=== PATIENT | female | born 1965 | race Hispanic/Latino ===

== ENCOUNTER 2020-07-05 15:59 | Inpatient (IN) | payer BC ==
[2020-07-05] MEDS ORDERED: ACETAMINOPHEN 500 MG TAB ONE (17:15)
[2020-07-05 17:26] LABS: Absolute Lymphocytes (CBC) 1.1 K/uL (0.7-4.9); Basophils % 0.3 % (0-1.3); Hematocrit 38.4 % (36.0-45.0); Lymphocytes % 6.2 % (15.3-44.8); MPV 8.4 fL (7.6-11.3); RBC Red Blood Cell Count 4.42 M/uL (3.86-4.86)
[2020-07-05 17:30] LABS: Protime INR 1.17
[2020-07-05] MEDS ORDERED: NA CHLORIDE 0.9% 3,000 ML ONE (17:38)
[2020-07-05] MEDS ORDERED: IPRATROPIUM BROM 0.5MG/2.5ML ONE (17:39)
[2020-07-05] MEDS ORDERED: ALBUTEROL 2.5 MG/3 ML NEB SOL ONE (17:39)
[2020-07-05 17:47] LABS: ALT/SGPT 58 U/L (12-78); AST/SGOT 22 U/L (15-37); Albumin 3.5 g/dL (3.4-5.0); Alkaline Phosphatase 71 U/L (45-117); Amylase 31 U/L (25-115); BUN Blood Urea Nitrogen 20 mg/dL (7-18); Bicarbonate 27 mmol/L (21-32); Bilirubin Direct 0.3 mg/dL (0-0.2); Bilirubin Total 1.3 mg/dL (0.2-1.0); CKMB Creatine Kinase MB 1.2 ng/mL (0.3-3.6); Creatine Phosphokinase 183 U/L (26-192); Glucose Level 109 mg/dL (74-106); Lipase 45 U/L (73-393); Potassium 3.8 mmol/L (3.5-5.1); Protein, Total 7.6 g/dL (6.4-8.2); Sodium Level 137 mmol/L (136-145); Troponin (Emerg Dept Use Only) < 0.02 ng/mL (0.0-0.045)
[2020-07-05 18:03] LABS: Blood Morphology Comment NOT SEEN (NOT SEEN); Platelet Estimate ADEQ; White Blood Cell Scan OK (OK)
--- NOTE | 2020-07-05 18:04 | RAD REPORT ---
EXAM DESCRIPTION: Madie Single View07/05/2020 5:36 pm CLINICAL HISTORY: Cough COMPARISON: none FINDINGS: The lungs appear clear of acute infiltrate. The heart is normal size IMPRESSION: No acute abnormalities displayed
[2020-07-05 19:00] LABS: Urine Blood TRACE (NEG); Urine Glucose NEGATIVE (NEG); Urine Protein TRACE (NEG); Urine Specific Gravity 1.025 (1.005-1.030)
[2020-07-05 19:09] LABS: Urine Bacteria >50 /HPF (<20); Urine RBC <5 /HPF (NONE SEEN)
--- NOTE | 2020-07-05 19:12 | EDPHYS ---
Physician Documentation [facility] Name: Shaye Del Valle Age: 55 yrs Sex: Female : 1965 Arrival Date: 07/05/2020 Time: 16:16 Bed 18 Private MD: ED Physician Richard Pettit HPI: 07/05 18:02 This 55 yrs old Female presents to ER via Ambulatory with complaints of Cough, kdr Back Pain, Fatigue. 18:02 The patient or guardian reports cough, that is intermittent, described as mild, with no kdr sputum. Onset: The symptoms/episode began/occurred gradually, 1 week(s) ago. Severity of symptoms: At their worst the symptoms were mild, moderate, just prior to arrival, in the emergency department the symptoms are unchanged. Modifying factors: The symptoms are alleviated by nothing. Associated signs and symptoms: Pertinent positives: chest pain, fever, nausea, this patient has no pertinent positive symptoms. The patient has experienced similar episodes in the past, a few times. The patient has been recently seen by a physician:. The patient was diagnosed with COVID on 06/16 and this last week has had increasing coughing and associated back pain with coughing. She denies objective fever but has occasionally had chills. Historical: - Allergies: 16:21 No Known Allergies; sv - PMHx: 16:21 Hypertension; OA; sv - PSHx: 16:21 ; Hernia repair; right shoulder; sv - Immunization history:: Adult Immunizations up to date. - Social history:: Smoking status: Patient/guardian denies using tobacco, Stopped _ months ago 2. ROS: 18:02 Eyes: Negative for injury, pain, redness, and discharge, ENT: Negative for injury, kdr pain, and discharge, Neck: Negative for injury, pain, and swelling, Cardiovascular: Negative for chest pain, palpitations, and edema, Abdomen/GI: Negative for abdominal pain, nausea, vomiting, diarrhea, and constipation, : Negative for injury, bleeding, discharge, and swelling, MS/Extremity: Negative for injury and deformity, Skin: Negative for injury, rash, and discoloration, Neuro: Negative for headache, weakness, numbness, tingling, and seizure activity. Psych: Negative for depression, anxiety, suicide ideation, homicidal ideation, and hallucinations, Allergy/Immunology: Negative for hives, rash, and allergies, Endocrine: Negative for neck swelling, polydipsia, polyuria, polyphagia, and marked weight changes, Hematologic/Lymphatic: Negative for swollen nodes, abnormal bleeding, and unusual bruising. 18:02 Respiratory: Positive for cough, with no reported sputum, shortness of breath, Negative for dyspnea on exertion, hemoptysis, orthopnea, pleurisy, sputum production, wheezing. 18:02 Back: Positive for pain with movement, Negative for decreased range of motion, pain at rest, radiated pain. Exam: 17:46 ECG was reviewed by the Attending Physician. kdr 18:02 Constitutional: This is a well developed, well nourished patient who is awake, alert, kdr and in no acute distress. Head/Face: Normocephalic, atraumatic. Eyes: Pupils equal round and reactive to light, extra-ocular motions intact. Lids and lashes normal. Conjunctiva and sclera are non-icteric and not injected. Cornea within normal limits. Periorbital areas with no swelling, redness, or edema. Neck: Trachea midline, no thyromegaly or masses palpated, and no cervical lymphadenopathy. Supple, full range of motion without nuchal rigidity, or vertebral point tenderness. No Meningismus. Chest/axilla: Normal chest wall appearance and motion. Nontender with no deformity. No lesions are appreciated. Cardiovascular: Regular rate and rhythm with a normal S1 and S2. No gallops, murmurs, or rubs. Normal PMI, no JVD. No pulse deficits. Respiratory: Lungs have equal breath sounds bilaterally, clear to auscultation and percussion. No rales, rhonchi or wheezes noted. No increased work of breathing, no retractions or nasal flaring. Abdomen/GI: Soft, non-tender, with normal bowel sounds. No distension or tympany. No guarding or rebound. No evidence of tenderness throughout. Back: No spinal tenderness. No costovertebral tenderness. Full range of motion. Skin: Warm, dry with normal turgor. Normal color with no rashes, no lesions, and no evidence of cellulitis. MS/ Extremity: Pulses equal, no cyanosis. Neurovascular intact. Full, normal range of motion. Neuro: Awake and alert, GCS 15, oriented to person, place, time, and situation. Cranial nerves II-XII grossly intact. Motor strength 5/5 in all extremities. Sensory grossly intact. Cerebellar exam normal. Normal gait. Psych: Awake, alert, with orientation to person, place and time. Behavior, mood, and affect are within normal limits. Vital Signs: 16:21 BP 114 / 67; Pulse 110; Resp 22; Temp 99.5(TE); Pulse Ox 99% on R/A; Weight 102.51 kg; sv Height 5 ft. 4 in. (162.56 cm); Pain 5/10; 16:57 Temp 102.7; zb 17:52 BP 108 / 56; Pulse 96; Resp 18; Temp 99.4(O); Pulse Ox 100% on R/A; mh5 18:57 BP 96 / 50; Pulse 100; Resp 18; Temp 99.3(O); Pulse Ox 95% on 2 lpm NC; mh5 20:00 BP 96 / 50; Pulse 96; Resp 20; Pulse Ox 97% on R/A; zb 21:25 BP 107 / 50; Pulse 92; Resp 19; Pulse Ox 100% on R/A; zb 16:21 Body Mass Index 38.79 (102.51 kg, 162.56 cm) sv MDM: 18:02 Data reviewed: vital signs, nurses notes, lab test result(s), radiologic studies. kdr Counseling: I had a detailed discussion with the patient and/or guardian regarding: the historical points, exam findings, and any diagnostic results supporting the discharge/admit diagnosis, lab results, radiology results, the need for outpatient follow up. 19:03 Patient medically screened. ma2 07/05 16:28 Order name: Basic Metabolic Panel kdr 07/05 16:28 Order name: Blood Culture Adult (2) kdr 07/05 16:28 Order name: CBC with Diff kdr 07/05 16:28 Order name: Ckmb kdr 07/05 16:28 Order name: CPK kdr 07/05 16:28 Order name: Lactate; Complete Time: 17:48 kdr 07/05 16:28 Order name: LFT's; Complete Time: 17:48 kdr 07/05 16:28 Order name: Lipase; Complete Time: 17:48 kdr 07/05 16:28 Order name: Procalcitonin; Complete Time: 18:34 kdr 02/10 16:28 Order name: Protime (+inr); Complete Time: 17:48 kdr 07/05 16:28 Order name: Ptt, Activated; Complete Time: 17:48 kdr 07/05 16:28 Order name: Troponin (emerg Dept Use Only); Complete Time: 17:48 kdr 07/05 16:28 Order name: Urine Microscopic Only; Complete Time: 19:10 kdr 07/05 16:26 Order name: CXR XRAY; Complete Time: 18:34 kdr 07/05 16:28 Order name: Amylase; Complete Time: 17:48 EDMS 07/05 16:28 Order name: Basic Metabolic Panel; Complete Time: 17:48 EDMS 07/05 16:28 Order name: Blood Culture [facility] 07/05 16:28 Order name: CBC with Automated Diff [facility] 07/05 16:28 Order name: CKMB Creatine Kinase MB; Complete Time: 17:48 EDCA 07/05 16:28 Order name: Creatine Phosphokinase; Complete Time: 17:48 EDCA 07/05 18:03 Order name: CBC Smear Scan [facility] 07/05 18:55 Order name: Urine Dipstick--Ancillary (enter results) 07/05 18:56 Order name: Urine Dipstick-Ancillary; Complete Time: 19:02 [facility] 07/05 19:10 Order name: Urine Culture [facility] 07/05 20:36 Order name: SARS-COV-2 RT PCR [facility] 07/05 16:28 Order name: Accucheck; Complete Time: 17:19 [facility] 07/05 16:28 Order name: Cardiac monitoring; Complete Time: 17:19 [facility] 07/05 16:28 Order name: EKG - Nurse/Tech; Complete Time: 17:19 [facility] 07/05 16:28 Order name: IV Saline Lock - Large Bore; Complete Time: 17:19 kdr 07/05 16:28 Order name: Labs collected and sent; Complete Time: 17:19 [facility] 07/05 16:28 Order name: O2 Per Protocol; Complete Time: 17:19 [facility] 07/05 16:28 Order name: O2 Sat Monitoring; Complete Time: 17:20 [facility] 07/05 16:28 Order name: Urine Dipstick-Ancillary (obtain specimen); Complete Time: 18:55 kdr EC:46 Rate is 106 beats/min. Rhythm is regular, Sinus tachycardia with No ectopy. QRS [place] is kdr Normal. [place] interval is normal. QRS interval is normal. QT interval is normal. Clinical impression: Sinus tachycardia. Administered Medications: 17:04 Drug: Tylenol 1000 mg Route: PO; zb 19:45 Follow up: Response: No adverse reaction; Temperature is decreased zb 17:36 Drug: NS 0.9% (30 ml/kg) 30 ml/kg Route: IV; Rate: bolus; Site: right antecubital; zb 19:30 Follow up: Response: No adverse reaction; IV Status: Completed infusion; IV Intake: zb 3100ml 17:36 Drug: Albuterol - atroVENT (3:1) (2.5 mg - 0.5 mg) 3 ml Route: Nebulizer; zb 19:46 Follow up: Response: No adverse reaction zb 19:17 Drug: Rocephin 1 grams Route: IV; Rate: calculated rate; Site: right antecubital; zb 19:45 Follow up: Response: No adverse reaction; IV Status: Completed infusion zb Disposition: 07/05/20 19:12 Hospitalization ordered by Neymar Yu for Observation. Preliminary diagnosis are Urinary tract infection, site not specified, Sepsis, unspecified organism, Cough, COVID. - Bed requested for Telemetry/MedSurg (observation). - Status is Observation. zb - Condition is Fair. - Problem is new. - Symptoms have improved. Signatures: Dispatcher [employer] EDMS Mamta Reed RN RN sv Rittger, Kevin, MD MD [facility] Patricia Ulrich RN RN tl1 Boogie Raya MD MD ma2 Aspen Robertson RN RN zb Corrections: (The following items were deleted from the chart) 16:21 16:21 Social history: Smoking status: Patient denies any tobacco usage or history of. svsv 17:33 16:28 AMYLASE, SERUM+C.LAB.BRZ ordered. EDMS EDMS 19:54 19:39 CORONAVIRUS ordered. EDMS EDMS 20:51 19:12 Hospitalization Ordered by Neymar Yu for Observation. Preliminary diagnosis tl1 is Urinary tract infection, site not specified; Sepsis, unspecified organism; Cough; COVID. Bed requested for Telemetry/MedSurg (observation). Status is Observation. Condition is Fair. Problem is new. Symptoms have improved. kdr 22:13 20:51 07/05/2020 19:12 Hospitalization Ordered by Neymar Yu for Observation. zb Preliminary diagnosis is Urinary tract infection, site not specified; Sepsis, unspecified organism; Cough; COVID. Bed requested for Telemetry/MedSurg (observation). Status is Observation. Condition is Fair. Problem is new. Symptoms have improved. tl1
--- NOTE | 2020-07-05 19:12 | ER ---
Nurse's Notes [facility] Name: Shaye Del Valle Age: 55 yrs Sex: Female : 1965 Arrival Date: 07/05/2020 Time: 16:16 Bed 18 Private MD: Diagnosis: Urinary tract infection, site not specified;Sepsis, unspecified organism;Cough;COVID Presentation: 07/05 16:18 Chief complaint: Patient states: COVID + 06/16/20, c/o cough and upper back pain. Has sv been on prescription meds since being diagnosed. Coronavirus screen: Client reports previous positive COVID test result. Ebola Screen: No symptoms or risks identified at this time. Risk Assessment: Do you want to hurt yourself or someone else? Patient reports no desire to harm self or others. Onset of symptoms was June 16, 2020. 16:18 Method Of Arrival: Ambulatory sv 16:18 Acuity: YANETH 3 sv 16:21 Initial Sepsis Screen: Does the patient meet any 2 criteria? RR > 20 per min. HR > 90 sv bpm. Yes Does the patient have a suspected source of infection? Yes: Other: COVID. Historical: - Allergies: 16:21 No Known Allergies; sv - PMHx: 16:21 Hypertension; OA; sv - PSHx: 16:21 ; Hernia repair; right shoulder; sv - Immunization history:: Adult Immunizations up to date. - Social history:: Smoking status: Patient/guardian denies using tobacco, Stopped _ months ago 2. Screenin:46 Abuse screen: Denies threats or abuse. Denies injuries from another. Nutritional zb screening: No deficits noted. Tuberculosis screening: No symptoms or risk factors identified. Fall Risk None identified. Assessment: 17:00 General: Appears in no apparent distress. uncomfortable, Behavior is calm, cooperative, zb appropriate for age. Pain: Complains of pain in back pain, headache, abdominal pain. Neuro: Level of Consciousness is awake, alert, obeys commands, Oriented to person, place, time, situation. Cardiovascular: Capillary refill < 3 seconds in bilateral fingers Patient's skin is warm and dry. Respiratory: Reports cough that is Airway is patent Respiratory effort is even, unlabored, Respiratory pattern is tachypnea Breath sounds are diminished in right posterior upper lobe Denies cough. GI: Abdomen is round obese, Bowel sounds present X 4 quads. Reports lower abdominal pain, upper abdominal pain. : No signs and/or symptoms were reported regarding the genitourinary system. EENT: No signs and/or symptoms were reported regarding the EENT system. Derm: Skin is intact, Skin is dry, Skin is normal, Skin temperature is warm. Musculoskeletal: Capillary refill < 3 seconds, Range of motion: intact in all extremities. 17:03 Reassessment: notified ecp of temp. zb 18:00 Reassessment: Patient appears in no apparent distress at this time. Patient and/or zb family updated on plan of care and expected duration. Pain level reassessed. Patient is alert, oriented x 3, equal unlabored respirations, skin warm/dry/pink. neb treatment ongoing. 19:46 Reassessment: hospitalist at bedside. zb 20:46 Reassessment: Patient appears in no apparent distress at this time. Patient and/or zb family updated on plan of care and expected duration. Pain level reassessed. Patient is alert, oriented x 3, equal unlabored respirations, skin warm/dry/pink. pt resting at bedside. 21:25 Reassessment: Patient appears in no apparent distress at this time. Patient and/or zb family updated on plan of care and expected duration. Pain level reassessed. Patient is alert, oriented x 3, equal unlabored respirations, skin warm/dry/pink. notified patient that she has a room upstairs. 21:43 Reassessment: report called. z Vital Signs: 16:21 BP 114 / 67; Pulse 110; Resp 22; Temp 99.5(TE); Pulse Ox 99% on R/A; Weight 102.51 kg; sv Height 5 ft. 4 in. (162.56 cm); Pain 5/10; 16:57 Temp 102.7; zb 17:52 BP 108 / 56; Pulse 96; Resp 18; Temp 99.4(O); Pulse Ox 100% on R/A; 5 18:57 BP 96 / 50; Pulse 100; Resp 18; Temp 99.3(O); Pulse Ox 95% on 2 lpm NC; mh5 20:00 BP 96 / 50; Pulse 96; Resp 20; Pulse Ox 97% on R/A; zb 21:25 BP 107 / 50; Pulse 92; Resp 19; Pulse Ox 100% on R/A; zb 16:21 Body Mass Index 38.79 (102.51 kg, 162.56 cm) sv ED Course: 16:16 Patient arrived in ED. as 16:18 Arm band placed on. sv 16:20 Triage completed. sv 16:25 Richard Pettit MD is Attending Physician. kdr 16:30 Aspen Robertson RN is Primary Nurse. zb 17:32 Creatine Phosphokinase Sent. mh5 17:32 CBC with Automated Diff Sent. mh5 17:32 CKMB Creatine Kinase MB Sent. mh5 17:32 Basic Metabolic Panel Sent. mh5 17:32 Blood Culture Sent. mh5 17:32 Amylase Sent. mh5 17:33 Basic Metabolic Panel Sent. mh5 17:33 Blood Culture Adult (2) Sent. mh5 17:33 CBC with Diff Sent. mh5 17:33 Ckmb Sent. mh5 17:33 CPK Sent. mh5 17:34 Lactate Sent. mh5 17:34 LFT's Sent. mh5 17:34 Lipase Sent. mh5 17:34 Procalcitonin Sent. mh5 17:35 Initial lab(s) drawn, by me, sent to lab. EKG done, by ED staff, reviewed by Richard Pettit MD. Inserted saline lock: 22 gauge in right antecubital area, using aseptic technique. Blood collected. 17:36 CXR XRAY In Process Unspecified. EDMS 17:36 Patient has correct armband on for positive identification. Placed in gown. Bed in low mh5 position. Call light in reach. Side rails up X 1. Pillow given. monitoring manager on. Pulse ox on. NIBP on. 18:56 Urine Microscopic Only Sent. mh5 18:56 Urine collected: clean catch specimen, cloudy. mh5 19:10 Neymar Yu is Hospitalizing Provider. kdr 19:25 Inserted saline lock: 20 gauge in left antecubital area, using aseptic technique. mh5 21:44 No provider procedures requiring assistance completed. Patient admitted, IV remains in zb place. Administered Medications: 17:04 Drug: Tylenol 1000 mg Route: PO; zb 19:45 Follow up: Response: No adverse reaction; Temperature is decreased zb 17:36 Drug: NS 0.9% (30 ml/kg) 30 ml/kg Route: IV; Rate: bolus; Site: right antecubital; zb 19:30 Follow up: Response: No adverse reaction; IV Status: Completed infusion; IV Intake: zb 3100ml 17:36 Drug: Albuterol - atroVENT (3:1) (2.5 mg - 0.5 mg) 3 ml Route: Nebulizer; zb 19:46 Follow up: Response: No adverse reaction zb 19:17 Drug: Rocephin 1 grams Route: IV; Rate: calculated rate; Site: right antecubital; zb 19:45 Follow up: Response: No adverse reaction; IV Status: Completed infusion zb Intake: 19:30 IV: 3100ml; Total: 3100ml. zb Outcome: 19:12 Decision to Hospitalize by Provider. kdr 21:44 Admitted to Med/surg accompanied by tech, room 210, with chart, Report called to 2nd zb floor nurse. 21:44 Condition: stable 22:13 Patient left the ED. zb Signatures: Dispatcher [employer] EDMS Mamta Reed RN RN sv Richard Pettit MD MD kdr Martinez, Amelia as Martinez, Maria [facility] Aspen Robertson RN RN zb Corrections: (The following items were deleted from the chart) 16:21 16:21 Social history: Smoking status: Patient denies any tobacco usage or history of. svsv 16:24 16:18 Acuity: YANETH 4 sv sv 16:24 16:21 Pulse 110bpm; Resp 22bpm; Pulse Ox 99% RA; Temp 99.5F Temporal; 102.51 kg; Height sv 5 ft. 4 in.; BMI: 38.7; Pain 5/10; sv 17:33 17:32 AMYLASE, SERUM+C.LAB.BRZ drawn and sent. [address] 23:20 23:19 Response: No adverse reaction; IV Status: Completed infusion; IV Intake: 3100ml zbzb
[2020-07-05] MEDS ORDERED: CEFTRIAXONE/SWI 1gm 1 GM/10 ML SYR ONE (19:23)
--- OUTSIDE RECORDS SUMMARY | 2020-07-05 20:14 | XMS REPORT | Summary of Care ---
:1965 Author Organization [facility] Address [address] [place] [id number] Care Team Providers Name Role Phone Lalita Pathak Primary Care Provider Reason for Visit Reason Comments Exposure LAB Encounter Details Date Type Department Care Team Description 06/16/[address] [facility] Family Unknown, Attending Exposure to Medicine - [facility], Adc Fam Pob I SARS-associated [address] [facility] coronaviru s ([address] Dx) [place] [id number] Allergies No Known Allergiesdocumented as of this encounter (statuses as of 06/16/2020) Medications Medication Sig Dispensed Refills Start Date End Date Status ibuprofen (ADVIL) 200 Take 200 mg by 0 Active mg tablet mouth every 6 (six) hours as needed. diclofenac (VOLTAREN) Take 1 Tab by 60 Tab 1 07/27/2015 Active 75 mg EC tablet mouth 2 (two) times daily with meals. 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 documented as of this encounter Last Filed Vital Signs Not on filedocumented in this encounter Nursing Notes Bertha Head MA - 06/16/2020 2:40 PM Cielo Mancera is a 55 year old female here for COVID Screening with a Nasopharyngeal Swab All droplet and contact precautions taken with appropriate PPE worn while interacting with patient. ? Goggles ? N95 Mask ? Gloves ? Gown RR 20 Pulse Ox 98% pulse 79 Patient educated on plan of care for visit, swabbing technique, risks and benefits of test and length of time to receive results. Verbal consent obtained to perform test. CDC Fact Sheet for Patients nCoV Diagnostic Panel dated 08/08/2019 and Factsheet What to Do if Sick with COVID 19 07/19/19 provided. Patient swabbed per appropriate nasopharyngeal technique, and patient tolerated well. Patient was discharged from the testing clinic in stable condition. Bertha Head MA 06/16/2020 11:21 AM Bilate nares swabbed during COVID19 nasopharyngeal swab. 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 documented in this encounter Plan of Treatment Name Type Priority Associated Diagnoses Order S chedule COVID-19 (MOLECULAR LAB Routine Exposure to Expected : 06/16/2020, TESTING SARS-associated Expires: 022 NUCLEIC ACID coronavirus AMPLIFICATION) Health Maintenance Due Date Last Done Comments Depression Screening 1978 DTaP,Tdap,and Td Vaccines (1 - 1985 Tdap) PAP SMEAR 1987 COLON CANCER SCREENING ANNUAL 02/02/2016 FIT/FOBT COLON CANCER SCREENING FIT DNA 02/02/2016 EVERY 3 YEARS COLON CANCER SCREENING 02/02/2016 SIGMOIDOSCOPY EVERY 5 YEARS COLONOSCOPY 02/02/2016 Colorectal Cancer Screening 02/02/2016 Zoster Recombinant Vaccine 02/02/2016 (SHINGRIX) (1 of 2) INFLUENZA VACCINE (#1) 2020 Breast Cancer Screening 03/22/2021 03/22/2020 (MAMMOGRAM) PNEUMOCOCCAL 0-64 YEARS COMBINED Aged Out No longer eligible based on SERIES patient's age to complete this topic documented as of this encounter Results Not on filedocumented in this encounter Visit Diagnoses Diagnosis Exposure to SARS-associated coronavirus - Primary documented in this encounter Additional Health Concerns Infection Onset Date Last Indicated Resolved Time COVID-19 Rule Out 06/16/2020 06/16/2020 documented as of this encounter Insurance Payer Benefit Plan Subscriber ID Effective Dates Phone Address Type / Group BC[facility] OF [facility] [id number] 2014-Samantha [phone] [address] PPO/POS [facility] [id number] [place] [address] documented as of this encounter
--- OUTSIDE RECORDS SUMMARY | 2020-07-05 20:14 | XMS REPORT | Continuity of Care Document ---
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 Allergies, Adverse Reactions, Alerts This patient has no known allergies or adverse reactions. Medications This patient has no known medications. Procedures This patient has no known procedures. Encounters Start End Encounter Admission Attending Care Care Encounter Source Date/Time Date/Time Type Type Clinicians Facility Department ID 2020-06-27 2020-06-27 Telephone Carmen [facility] [id number] 00:00:00 00:00:00 Lesa Wilson [id number] [place] [id number] Professio [phone] nal 044 Building 2020-06-16 2020-06-16 Laboratory Lab, Adc [facility] [id number] 11:00:03 11:20:03 Only Fam Pob I Health [id number] [place] [id number] Professio [phone] nal 044 Office Building One 2020-03-22 2020-03-22 Hospital Radiology [facility] [id number] 14:00:00 23:59:00 Encounter [place] [id number] [place] [id number] [place] [id number] 2020-03-14 2020-03-14 [facility] Radiology [facility] [id number] 11:40:47 23:59:00 Encounter [place] [id number] [place] [id number] [place] [id number] 2019-12-04 2019-12-04 Laboratory Lab, [facility] [id number] 09:09:12 09:29:12 Only Fam Pob I Health [id number] [place] [id number] Professio [id number] nal 044 Office Building One 2019-12-04 2019-12-04 Letter Doctor YOLANDA [id number] 00:00:00 00:00:00 (Out) Unassigned, DIVINA [id number] [place] [facility] [id number] [id number] 2019-12-01 2019-12-01 Laboratory Lab, [facility] [id number] 07:00:00 07:20:00 Only Fam Pob I Health [id number] [place] [id number] Professio [phone] nal 044 Office Building One Results This patient has no known results.
--- OUTSIDE RECORDS SUMMARY | 2020-07-05 20:14 | XMS REPORT | Summary of Care ---
:1965 Author Organization [facility] Address [address] [place] [id number] Care Team Providers Name Role Phone Lalita Pathak Primary Care Provider Reason for Visit Reason Comments TEST RESULTS Encounter Details Date Type Department Care Team Description 06/27/2020 Telephone [facility] Pediatric and Lesa Morales FNP TEST RESULTS Adult Primary Care- [address] [facility] [id number] [place] [address] [address] [place] [address] [phone] Allergies No Known Allergiesdocumented as of this encounter (statuses as of 06/27/2020) Medications Medication Sig Dispensed Refills Start Date End Date Status ibuprofen (ADVIL) 200 Take 200 mg by 0 Active mg tablet mouth every 6 (six) hours as needed. diclofenac (VOLTAREN) Take 1 Tab by 60 Tab 1 07/27/2015 Active 75 mg EC tablet mouth 2 (two) times daily with meals. documented as of this encounter (statuses as of 06/27/2020) Active Problems Not on filedocumented as of this encounter (statuses as of 06/27/2020) Social History Tobacco Use Types Packs/Day Years Used Date Never Smoker Alcohol Use Drinks/Week oz/Week Comments Not Asked 0 Standard drinks or equivalent 0.0 Sex Assigned at Date Recorded Not on file COVID-19 Exposure Response Date Recorded In the last month, have you been in contact with Yes 06/16/2020 11:21 AM [employer] someone who was confirmed or suspected to have Coronavirus / COVID-19? documented as of this encounter Last Filed Vital Signs Not on filedocumented in this encounter Miscellaneous Notes Telephone Encounter - Caren Pathak MA - 06/27/2020 11:18 AM CSTTried to call the patient to discuss the results. Unable to leave a message due the voicemail box being full. documented in this encounter Plan of Treatment Health Maintenance Due Date Last Done Comments [...] Results Not on filedocumented in this encounter Additional Health Concerns Infection Onset Date Last Indicated Resolved Time COVID-19 Confirmed 06/16/2020 06/16/2020 documented as of this encounter Insurance Payer Benefit Plan Subscriber ID Effective Dates Phone Address Type / Group [employer] [place] [id number] 2014-Prese [phone] [address] [id number] [place] [address] [employer] [place] [employer] [place] [id number] 2015-[employer] [phone] [address] [place] [id number] [place] [address] documented as of this encounter
[2020-07-05] MEDS ORDERED: NA CHLORIDE 0.9% 500 ML IV ONE (22:12)
[2020-07-05] MEDS: MELATONIN 5 MG TABLET PO SCH (22:12)
[2020-07-05 22:14] VITALS: BMI 38.6
[2020-07-05] MEDS: ASCORBIC ACID 500 MG TABLET PO SCH (22:53)
[2020-07-05] MEDS: NA CHLORIDE 0.9% 1,000 ML IV SCH (22:54)
--- NOTE | 2020-07-05 22:58 | P.INFCA ---
Sepsis Focused Assessment - Focused Assessment Complete? Sepsis Focused Assessment Completed?: Yes - Sepsis Screen Result Severe Sepsis: Positive Septic Shock: Negative - Evaluation Current stage of sepsis: Severe sepsis - Vital Signs Reviewed: Yes Temperature: 96.8 F Heart rate: 92 Blood Pressure: 127/60 Respiratory Rate: 19 O2 Sat by Pulse Oximetry: 98 - Examination Date exam was performed: 07/05/20 Time exam was performed: 21:00 Heart: Regular rate/rhythm Lungs: Clear bilaterally Peripheral pulses: 2+ Slightly diminished Peripheral pulse location: Radial Capillary refill: <2 Seconds Skin examination: Normal turgor (improved post fluids )
--- NOTE | 2020-07-05 23:05 | P.HP ---
Certification for Inpatient Patient admitted to: Inpatient With expected LOS: >2 Midnights Patient will require the following post-hospital care: None Practitioner: I am a practitioner with admitting privileges, knowledge of patient current condition, hospital course, and medical plan of care. Services: Services provided to patient in accordance with Admission requirements found in Title 42 Section 412.3 of the Code of Federal Regulations <Lamont Bautista - Last Filed: 07/05/20 22:58> Patient History Date of Service: 07/05/20 Primary Care Provider: Beard Reason for admission: Sepsis, UTI History of Present Illness: This is a 55-year-old female that presented to the emergency room for 1 week of gradual increasing cough and back pain with body aches and chills. Patient had been diagnosed with COVID on June 16 of this year. Stated for the most part she had been doing well up until recently. Patient initially arrived with a 102.7 temperature with a pulse of 110 and respiratory rate of 22 fighting for sepsis criteria. Patient was worked up in the emergency room found to have a sodium of 137, potassium 3.8, chloride 101, bicarb 25, BUN of 20, creatinine 1.2, glucose 109. Patient had a increased white cell count of 18.1, hemoglobin 12.9, hematocrit 38.4, platelets 205. Patient had an elevated procalcitonin 1.18. Lactate was negative, troponin was negative, chest x-ray did not reveal any focal consolidation or bilateral interstitial opacities consistent with viral or bacterial pneumonia. Urine was collected in the emergency room and found to have WBC and bacteria on microscopic examination. Patient had not been on any recent steroid therapy as well. Concern for urinary tract infection with sepsis present. Medicine consulted at that time for further evaluation and admission. Home medications list reviewed: Yes - Past Medical/Surgical History Has patient received pneumonia vaccine in the past: No Diabetic: No - Social History Smoking Status: Never smoker Smoking therapy provided: No Alcohol use: No CD- Drugs: No Caffeine use: No Place of Residence: Home <Mary Bautistashua - Last Filed: 07/05/20 22:58> Date of Service: 07/06/20 <neeraj santos - Last Filed: 07/06/20 18:47> Allergies No Known Allergies Allergy (Verified 01/02/16 14:32) Home Medications: Antiarthritic Combination No.2 [Glucosamine-Chondroitin] 900 mg PO DAILY 01/02/16 Calcium Carbonate [Calcium] 600 mg PO DAILY 01/02/16 Cholecalciferol (Vitamin D3) [Vitamin D 1000 Iu Tab] 1,000 unit PO DAILY 01/02/16 Fenoprofen Calcium 600 mg PO DAILY 07/05/20 Guaifenesin [Mucinex] 600 mg PO DAILY 07/05/20 Losartan Potassium 100 mg PO DAILY 07/05/20 hydroCHLOROthiazide [Hydrochlorothiazide] 12.5 mg PO DAILY 07/05/20 Review of Systems General: Chills, Malaise Eyes: Unremarkable ENT: Unremarkable Respiratory: Cough Cardiovascular: Unremarkable Genitourinary: Unremarkable Musculoskeletal: Unremarkable Integumentary: Unremarkable Neurological: Unremarkable Lymphatics: Unremarkable <Lamont Bautista - Last Filed: 07/05/20 22:58> Physical Examination - Vital Signs Temperature: 96.8 F Blood Pressure: 127/60 Pulse: 92 Respirations: 19 Pulse Ox (%): 98 - Physical Exam General: Alert, Oriented x3, Cooperative HEENT: PERRLA, Mucous membr. moist/pink, EOMI Neck: Supple, 2+ carotid pulse no bruit, JVD not distended, No Thyromegaly Respiratory: Clear to auscultation bilaterally, Normal air movement Cardiovascular: No edema, Normal pulses, Regular rate/rhythm, Normal S1 S2, No gallops, No rubs, No murmurs Capillary refill: <2 Seconds Gastrointestinal: Normal bowel sounds, Soft and benign, Non-distended, No ascites, No tenderness, No masses, No rebound, No guarding Musculoskeletal: No clubbing, No swelling, No contractures, No erythema, No tenderness, No warmth Integumentary: No rashes, No breakdown, No significant lesion, No tenderness/swelling, No erythema, No warmth, No cyanosis Neurological: Normal speech, Normal strength at 5/5 x4 extr, Normal tone, Sensation intact, Cranial nerves 3-12 intact, Normal affect Lymphatics: No axilla or inguinal lymphadenopathy - Studies Laboratory Data (last 24 hrs) 07/05/20 17:10: PT 13.5 H, INR 1.17, APTT 29.0 07/05/20 17:10: WBC 18.10 H, Hgb 12.9, Hct 38.4, Plt Count 205 07/05/20 17:10: Sodium 137, Potassium 3.8, BUN 20 H, Creatinine 1.20, Glucose 109 H, Total Bilirubin 1.3 H, AST 22, ALT 58, Alkaline Phosphatase 71, Amylase 31, Lipase 45 L <Lamont Bautista - Last Filed: 07/05/20 22:58> Assessment and Plan - Problems (Diagnosis) (1) Hypertension Current Visit: Yes Status: Chronic Plan: We will continue to monitor patient's blood pressure while in the inpatient setting. Patient will have BP meds as needed for systolic blood pressure greater than 160 or diastolic blood pressure greater than 110. Qualifiers: Hypertension type: essential hypertension Qualified Code(s): I10 - Essential (primary) hypertension (2) Urinary tract infection Current Visit: Yes Status: Acute Plan: Patient with confirm urinary tract infection on microscopic exam. Patient will have urine cultures obtained for sensitivity. Patient placed on Rocephin at this time Qualifiers: Urinary tract infection type: site unspecified Hematuria presence: without hematuria Qualified Code(s): N39.0 - Urinary tract infection, site not specified (3) Severe sepsis Current Visit: Yes Status: Acute Plan: Patient flight for sepsis upon ED admission. Patient doing better after fluids and initial antibiotics. Will continue to monitor patient's lactate and procalcitonin along with patient's white cell count to show signs of improvement or worsening condition. Patient has been placed on Rocephin twice daily for now and she has confirm urinary tract infection. Will adjust antibiotic dosage and or antibiotic is self depending on culture. We will continue to monitor for hemodynamic status and will continue to lightly hydrated via IV with normal saline. Discharge Plan: Home Plan to discharge in: 48 Hours - Advance Directives Does patient have a Living Will: No Does patient have a Durable POA for Healthcare: No - Code Status/Comfort Care Code Status Assessed: Yes Code Status: Full Code Critical Care: No Time Spent Managing Pts Care (In Minutes): 70 <Lamont Bautista - Last Filed: 07/05/20 22:58> - Problems (Diagnosis) (1) Acute pyelonephritis Current Visit: Yes Status: Acute (2) Severe sepsis Current Visit: Yes Status: Acute (3) Urinary tract infection Current Visit: Yes Status: Acute Qualifiers: Urinary tract infection type: site unspecified Hematuria presence: without hematuria Qualified Code(s): N39.0 - Urinary tract infection, site not specified (4) Hypertension Current Visit: Yes Status: Chronic Qualifiers: Hypertension type: essential hypertension Qualified Code(s): I10 - Leno tial (primary) hypertension Physician Review: Patient Assessed, Agree with Above Assessment and Plan Physician Review Additional Text: Acute pyelonephritis. plan: IV Rocephin Follow blood cultures and urine culture. <neeraj santos - Last Filed: 07/06/20 18:47>
[2020-07-06] MEDS: ACETAMINOPHEN 325 MG TABLET PO PRN ×2 (05:13→12:51)
[2020-07-06 06:09] LABS: Absolute Lymphocytes (CBC) 0.8 K/uL (0.7-4.9); Basophils % 0.3 % (0-1.3); Hematocrit 34.5 % (36.0-45.0); Lymphocytes % 5.3 % (15.3-44.8); MPV 8.4 fL (7.6-11.3); RBC Red Blood Cell Count 3.94 M/uL (3.86-4.86)
[2020-07-06 06:22] LABS: Potassium 3.8 mmol/L (3.5-5.1)
[2020-07-06] MEDS ORDERED: POTASSIUM 25 MEQ EFFERV TAB PO ONE (06:48)
[2020-07-06] MEDS ORDERED: CEFTRIAXONE 1 GM/NS 50 ML 1 GM/50 ML BAG IV SCH (07:00)
[2020-07-06] MEDS: ASCORBIC ACID 500 MG TABLET PO SCH ×4 (09:00→21:17)
[2020-07-06] MEDS: CEFTRIAXONE/SWI 1gm 1 GM/10 ML SYR IV SCH ×2 (09:00→17:57)
[2020-07-06] MEDS: VITAMIN D 5,000 UNIT CAP PO SCH (09:00)
[2020-07-06] MEDS: ZINC SULFATE 220 MG CAP PO SCH (09:00)
--- NOTE | 2020-07-06 13:26 | P.PN ---
Subjective Date of Service: 07/06/20 Primary Care Provider: Kisha Chief Complaint: Sepsis, UTI Patient states she is doing much better today. She is complaining of right flank pain. She also has a cough and intermittent fever concerning for upper respiratory infection. Rapid COVID test was negative. Physical Examination - Vital Signs Temperature: 100 F Blood Pressure: 108/61 Pulse: 86 Respirations: 20 Pulse Ox (%): 95 - Physical Exam General: Alert, In no apparent distress, Oriented x3 HEENT: Mucous membr. moist/pink Neck: Supple, JVD not distended Respiratory: Clear to auscultation bilaterally, Normal air movement Cardiovascular: No edema, Regular rate/rhythm, Normal S1 S2 Gastrointestinal: Normal bowel sounds, Hypoactive, Soft and benign, Non-distended, No tenderness Musculoskeletal: No swelling Integumentary: No rashes Neurological: Other (No focal motor deficit.) - Studies Laboratory Data (last 24 hrs) 07/05/20 17:10: PT 13.5 H, INR 1.17, APTT 29.0 07/05/20 17:10: WBC 18.10 H, Hgb 12.9, Hct 38.4, Plt Count 205 07/05/20 17:10: Sodium 137, Potassium 3.8, BUN 20 H, Creatinine 1.20, Glucose 109 H, Total Bilirubin 1.3 H, AST 22, ALT 58, Alkaline Phosphatase 71, Amylase 31, Lipase 45 L Assessment And Plan - Current Problems (Diagnosis) (1) Acute pyelonephritis Current Visit: Yes Status: Acute (2) Severe sepsis Current Visit: Yes Status: Acute (3) Urinary tract infection Current Visit: Yes Status: Acute Qualifiers: Urinary tract infection type: site unspecified Hematuria presence: without hematuria Qualified Code(s): N39.0 - Urinary tract infection, site not specified (4) Hypertension Current Visit: Yes Status: Chronic Qualifiers: Hypertension type: essential hypertension Qualified Code(s): I10 - Essential (primary) hypertension - Plan Continue IV Rocephin. Urine culture is growing Gram negative rods. Blood cultures are pending. Leukocytosis is improving. Follow cultures. Patient blood pressure readings are borderline low. Hold home antihypertensives. Obtained conventional COVID 19 test.
[2020-07-06] MEDS: NA CHLORIDE 0.9% 1,000 ML IV SCH (13:32)
[2020-07-06] MEDS: MELATONIN 5 MG TABLET PO SCH (21:00)
[2020-07-07] MEDS: NA CHLORIDE 0.9% 1,000 ML IV SCH ×2 (04:51→14:12)
[2020-07-07] MEDS: CEFTRIAXONE/SWI 1gm 1 GM/10 ML SYR IV SCH (06:54)
[2020-07-07 06:55] LABS: Absolute Lymphocytes (CBC) 1.3 K/uL (0.7-4.9); Basophils % 0.5 % (0-1.3); Hematocrit 32.1 % (36.0-45.0); Lymphocytes % 16.7 % (15.3-44.8); MPV 8.9 fL (7.6-11.3); RBC Red Blood Cell Count 3.68 M/uL (3.86-4.86)
[2020-07-07 07:09] LABS: Potassium 3.9 mmol/L (3.5-5.1)
[2020-07-07 08:51] VITALS: O2SAT 99
[2020-07-07] MEDS: ASCORBIC ACID 500 MG TABLET PO SCH ×2 (09:14→14:28)
[2020-07-07] MEDS: VITAMIN D 5,000 UNIT CAP PO SCH (09:14)
[2020-07-07] MEDS: ZINC SULFATE 220 MG CAP PO SCH (09:14)
[2020-07-07 12:28] VITALS: BP 128/68; TEMP 99
--- NOTE | 2020-07-07 13:55 | P.DS ---
Admission Date: 07/05/20 Discharge Date: 07/07/20 Primary Care Provider: Kisha Disposition: ROUTINE DISCHARGE Discharge Condition: FAIR Reason for Admission: Sepsis, UTI - Problems (1) Acute pyelonephritis Status: Acute (2) Severe sepsis Status: Acute (3) Urinary tract infection Status: Acute Qualifiers: Urinary tract infection type: site unspecified Hematuria presence: without hematuria Qualified Code(s): N39.0 - Urinary tract infection, site not specified (4) Hypertension Status: Chronic Qualifiers: Hypertension type: essential hypertension Qualified Code(s): I10 - Essential (primary) hypertension (5) COVID-19 Status: Acute Brief History of Present Illness: 55-year-old woman with a history of hypertension, recently diagnosed COVID 19 on 06/16/2020 presented to the emergency department with a complaint of chills, fever, general body aches, intermittent cough. Workup in the emergency department revealed leukocytosis, UA suggested the presence of UTI. Patient was complaining of right flank pain. He was diagnosed with UTI with sepsis, started on IV antibiotics and admitted for further management. Hospital Course: Patient was admitted to the medical floor and started on aggressive antibiotic therapy with IV Rocephin. Urine culture grew pansensitive E. coli. Blood cultures yielded no growth. Sepsis and leukocytosis resolved with treatment. Patient clinically improved though she continued to have intermittent cough. She had only 1 episode of fever in the ED. No fever and the rest of the hospital stay. Initial rapid test for COVID 19 was negative. Conventional test was done which came back positive. Patient has clinically improved. She is discharged with Augmentin to continue treatment for pyelonephritis. She is also prescribed prednisone therapy and vitamin supplementation to continue treatment for COVID 19. Her blood pressure medications were held during the hospital stay course she was normotensive without them. She is informed to recheck a blood pressure at home tends to start taking her blood pressure medications once her systolic blood pressure is 140 or more. Vital Signs/Physical Exam: Temp Pulse Resp BP Pulse Ox 99 F 82 19 128/68 98 07/07/20 12:00 07/07/20 12:00 07/07/20 12:00 07/07/20 12:00 07/07/20 12:00 General: Alert, In no apparent distress, Oriented x3 HEENT: Mucous membr. moist/pink Respiratory: Clear to auscultation bilaterally, Normal air movement Cardiovascular: No edema, Regular rate/rhythm, Normal S1 S2 Gastrointestinal: Soft and benign, Non-distended Musculoskeletal: No swelling, No tenderness Integumentary: No rashes, No erythema Neurological: Cranial nerves 3-12 intact Laboratory Data at Discharge: WBC 7.50 K/uL (4.3-10.9) D 07/07/20 06:30 Hgb 11.1 g/dL (12.0-15.0) L 07/07/20 06:30 Hct 32.1 % (36.0-45.0) L 07/07/20 06:30 Plt Count 169 K/uL (152-406) 07/07/20 06:30 PT 13.5 SECONDS (9.5-12.5) H 07/05/20 17:10 INR 1.17 07/05/20 17:10 APTT 29.0 SECONDS (24.3-36.9) 07/05/20 17:10 Sodium Cancelled 07/07/20 Unknown Potassium Cancelled 07/07/20 Unknown BUN Cancelled 07/07/20 Unknown Creatinine Cancelled 07/07/20 Unknown Glucose Cancelled 07/07/20 Unknown Total Bilirubin 1.3 mg/dL (0.2-1.0) H 07/05/20 17:10 AST 22 U/L (15-37) 07/05/20 17:10 ALT 58 U/L (12-78) 07/05/20 17:10 Alkaline Phosphatase 71 U/L (45-117) 07/05/20 17:10 Amylase 31 U/L (25-115) 07/05/20 17:10 Lipase 45 U/L (73-393) L 07/05/20 17:10 Home Medications: Antiarthritic Combination No.2 [Glucosamine-Chondroitin] 900 mg PO DAILY 01/02/16 Calcium Carbonate [Calcium] 600 mg PO DAILY 01/02/16 Guaifenesin [Mucinex] 600 mg PO DAILY 07/05/20 Amox/Clavulanate [Augmentin 875-125 Tab] 875 mg PO BID #16 tab 07/07/20 Ascorbic Acid [Vitamin C*] 2,000 mg PO QID #240 tablet 07/07/20 Benzonatate [Tessalon Perle] 100 mg PO TID PRN #30 cap 07/07/20 Cholecalciferol (Vitamin D3) [Vitamin D 1000 Iu Tab*] 4,000 unit PO DAILY #120 tab 07/07/20 Lactobacillus Acidophilus [Acidophilus Probiotic] 1 each PO TID #90 capsule 07/07/20 Melatonin 10 mg PO BEDTIME #30 tablet 07/07/20 Zinc Sulfate [Zinc Sulfate*] 220 mg PO DAILY #30 cap 07/07/20 New Medications: Lactobacillus Acidophilus [Acidophilus Probiotic] 1 each PO TID #90 capsule Amox/Clavulanate [Augmentin 875-125 Tab] 875 mg PO BID #16 tab Melatonin 10 mg PO BEDTIME #30 tablet Benzonatate [Tessalon Perle] 100 mg PO TID PRN #30 cap PRN Reason: Cough Ascorbic Acid [Vitamin C*] 2,000 mg PO QID #240 tablet Cholecalciferol (Vitamin D3) [Vitamin D 1000 Iu Tab*] 4,000 unit PO DAILY #120 tab Zinc Sulfate [Zinc Sulfate*] 220 mg PO DAILY #30 cap Diet: ADA Activity: Ad georgette Followup: NONE,NONE [Primary Care Provider] - Time spent managing pt's care (in minutes): 38
== END 2020-07-07 15:27 | disposition home or self-care (01) | DRG 871 ==
LOC: ER 15:59 → ERHOLD 20:41 → 2ND 21:48 → 4TH 07-07 04:31
PROVIDERS: ADMIT Internal Medicine; ATTEND Internal Medicine
DX: A41.51 Sepsis due to Escherichia coli [E. coli] (principal); U07.1 COVID-19; N10 Acute pyelonephritis; I10 Essential (primary) hypertension; A41.89 Other specified sepsis; R65.20 Severe sepsis without septic shock; Z79.899 Other long term (current) drug therapy
CPT/HCPCS: 36415; 71045; 80048; 80076; 81003; 81015; 82150; 82550; 82553; 83605; 83690; 84132; 84145; 84484; 85025; 85610; 85730; 87040; 87077; 87086; 87088; 87186; 93005; 94760; 96365; 99285; J0696; J7030; U0003